=== PATIENT | female | born 1995 | race Two or more races ===

== ENCOUNTER 2019-07-07 09:44 | Emergency (ER) | payer MEDICAID, OTHER ==
[~2019-07-07] VITALS: Ht 154.9 cm; Wt 54.4 kg
[2019-07-07 10:05] VITALS: BP 128/69
== END 2019-07-07 11:45 | disposition home or self-care (01) ==
LOC: ER 09:55
DX: L29.0 Pruritus ani (principal)

== ENCOUNTER 2019-07-16 17:39 | Emergency (ER) | payer OTHER ==
[~2019-07-16] VITALS: Ht 152.4 cm; Wt 61.7 kg
[2019-07-16] MEDS ORDERED: ONDANSETRON HCL/PF 4 MG/2 ML VIAL ONE (18:27)
[2019-07-16] MEDS ORDERED: MORPHINE SULFATE INJ 4 MG/ML DISP.SYRIN ONE (18:27)
[2019-07-16 18:33] LABS: BASOPHILS % (AUTO) 0.3 % (0.0-2.0); EOSINOPHILS % (AUTO) 1.3 % (0.0-6.0); HEMATOCRIT 38 % (33-45); HEMOGLOBIN 12.5 g/dL (11.5-14.8); LYMPHOCYTES # (AUTO) 2.4 /CMM (0.8-4.8); LYMPHOCYTES % (AUTO) 28.7 % (20.0-44.0); MEAN CORPUSCULAR HGB CONC 33 g/dl (31.0-36.0); MEAN CORPUSCULAR VOLUME 86 fL (82-100); MONOCYTES # (AUTO) 0.6 /CMM (0.1-1.30); NEUTROPHILS # (AUTO) 5.2 /CMM (1.8-8.9); NEUTROPHILS % (AUTO) 62.7 % (43.0-81.0); PLATELET COUNT (AUTO) 243 /CMM (150-450); RED BLOOD CELL COUNT(AUTO) 4.44 MIL/uL (4.0-5.2); WHITE BLOOD COUNT (AUTO) 8.2 K/uL (4.3-11.0)
[2019-07-16] MEDS: MORPHINE SULFATE INJ 2 MG/ML DISP.SYRIN IV ONE (18:34)
[2019-07-16] MEDS: IV NS 0.9% 1,000 ML BAG IV ONE (18:34)
[2019-07-16] MEDS: ONDANSETRON HCL/PF 4 MG/2 ML VIAL IVP ONE (18:35)
[2019-07-16 18:41] LABS: APPEARANCE,URINE Clear (CLEAR); BILIRUBIN,URINE Negative (NEGATIVE); BLOOD, URINE Trace-intact Ery/uL (NEGATIVE); COLOR,URINE Yellow (YELLOW); KETONES,URINE Negative (NEGATIVE); LEUKOCYTE ESTERASE ,URINE Negative (NEGATIVE); NITRITE, URINE Negative (NEGATIVE); PH,URINE 7.5 (5.0-8.0); PROTEIN,URINE Negative (NEGATIVE); UGLUCOSE Negative (NEGATIVE); UROBILINOGEN,URINE 0.2 EU/dL (0.2)
[2019-07-16 18:41] LABS: CALCIUM, SERUM 8.7 mg/dL (8.5-10.1); CREATININE 0.8 mg/dL (0.6-1.3); POTASSIUM 3.8 mmol/L (3.5-5.1)
[2019-07-16 18:47] LABS: ALBUMIN 3.9 g/dL (3.4-5.0); BILIRUBIN,DIRECT 0.1 mg/dL (0.0-0.2); BILIRUBIN,TOTAL 0.2 mg/dL (0.2-1.0); TOTAL PROTEIN, SERUM 7.7 g/dL (6.4-8.2)
[2019-07-16 19:27] LABS: BACTERIA,URINE Few /HPF (None Seen); RBC,URINE 2-3/HPF /HPF (0-2); SQUAMOUS EPITHELIAL CELL,UR Few /HPF (None Seen); URINE AMORPHOUS PHOSPHATES Few /HPF (None Seen); WBC,URINE 0-2 /HPF (0-3)
--- NOTE | 2019-07-16 19:48 | NUR ---
Assumed care of pt. US tech at bedside for US liver. Pt calm and cooperative at this time w/ HOB elevated, resp even & unlabored, repositioning self in bed w/ no acute distress noted. Bed low to ground w/ siderails up for safety. Will continue to monitor.
--- NOTE | 2019-07-16 20:07 | NUR ---
Pt sitting up in bed w/ resp even & unlabored, no N/V, repositioning self in bed w/ no acute distress noted. IV removed. Catheter intact and site benign. Pressure and 4x4 applied to site. No bleeding noted.Patient discharged to home w/ family in stable condition. Written and verbal after care instructions given. Patient verbalizes understanding of instruction.
[2019-07-16 20:08] VITALS: BP 118/76
== END 2019-07-16 20:11 | disposition home or self-care (01) ==
LOC: ER 17:39
DX: R10.11 Right upper quadrant pain (principal); R11.2 Nausea with vomiting, unspecified
CPT/HCPCS: 36415; 76705; 80048; 80076; 81001; 83690; 84703; 85025; 96361; 96374; 96375; 99284; J2270; J2405; J7030; 81000-TC

== ENCOUNTER 2021-06-27 22:23 | Emergency (ER) | payer OTHER ==
[~2021-06-27] VITALS: Ht 154.9 cm; Wt 54.4 kg
--- NOTE | 2021-06-27 22:42 | NUR ---
PT BIBS WITH C/O HAVING A DRY COUGH FOR 7 DAYS. PT ONLY TOOK COUGH CANDY TO TRY AND RELIEVE THE COUGH. PT ALERT AND ORIENTED X4. AMBULATORY WITH NON LABORED BREATHING.
--- NOTE | 2021-06-27 23:00 | NUR ---
EMT @ BEDSIDE FOR EKG
[2021-06-27] MEDS ORDERED: GUAIFENESIN 300 MG/15 ML UDC ONE (23:57)
[2021-06-28] MEDS ORDERED: BENZONATATE 100 MG CAPSULE PO ONE
[2021-06-28] MEDS ORDERED: GUAIFENESIN 300 MG/15 ML UDC PO ONE
--- NOTE | 2021-06-28 00:12 | NUR ---
covid swab done and sent to lab
[2021-06-28] MEDS ORDERED: BENZ-13 PO (00:43)
[2021-06-28] MEDS ORDERED: GUAI600T53 PO (00:43)
--- NOTE | 2021-06-28 00:51 | NUR ---
Patient discharged to home in stable condition. Written and verbal after care instructions given. Patient verbalizes understanding of instruction. RX given
[2021-06-28 00:52] VITALS: BP 133/80
== END 2021-06-28 01:05 | disposition home or self-care (01) ==
LOC: ER 22:24
DX: R05.9 Cough, unspecified (principal); Z20.822 Contact with and (suspected) exposure to COVID-19
CPT/HCPCS: 71046; 84703; 87426; 93005; 99285; C9803 ×2; U0003

== ENCOUNTER 2022-10-10 09:00 | Emergency (ER) | payer MEDICAID, OTHER ==
[~2022-10-10] VITALS: Ht 154.9 cm; Wt 63.5 kg
[~2022-10-10 09:00] MED LIST: BENZ-13 PO; GUAI600T53 PO
[2022-10-10 09:21] VITALS: BP 116/70
--- NOTE | 2022-10-10 09:21 | NUR ---
BIBS C/O COUGH [id number], WORSE AT NIGHT, CHEST HURTS FROM COUGHING A LOT. VITALS ARE WITHIN NORMAL LIMITS, AFEBRILE.
[2022-10-10] MEDS ORDERED: BENZ-13 PO (09:27)
--- NOTE | 2022-10-10 09:34 | NUR ---
Patient discharged to home in stable condition. Written and verbal after care instructions given. Patient verbalizes understanding of instruction.
== END 2022-10-10 09:35 | disposition home or self-care (01) ==
LOC: ER 09:16
DX: J06.9 Acute upper respiratory infection, unspecified (principal); R05.9 Cough, unspecified; Z98.890 Other specified postprocedural states; Z79.899 Other long term (current) drug therapy